=== PATIENT | male | born 1940 | race Caucasian/White ===

== ENCOUNTER 2024-12-24 09:35 | Observation (INO) | payer MEDICARE, BC ==
[2024-12-24] VITALS (8 sets, daily range): BP systolic 128–159; BP diastolic 81–97
[~2024-12-24] VITALS: Ht 170.2 cm; Wt 78.6 kg
[2024-12-24] MEDS ORDERED: ELIQUIS5 MG PO (09:51)
[2024-12-24] MEDS ORDERED: LEVOTHYROXIN50 MCG PO (09:51)
[2024-12-24] MEDS ORDERED: ALFUZOSIN HCL E10 MG PO (09:51)
[2024-12-24 10:32] LABS: BASO% 0.2 % (0-3); HEMOGLOBIN 12.9 g/dl (14.0-18.0); LYMPH% 9.4 % (15-41); MEAN CELL VOLUME 97.5 fL CALC (80.0-100.0); MEAN CORPUSCULAR HGB 32.3 pG CALC (26.0-32.0); MEAN CORPUSCULAR HGB CONC 33.1 g/dL CAL (32.0-36.0); NEUT% 78.4 % (42-76); RED CELL DISTRI WIDTH 13.8 % (11.5-15.5)
[2024-12-24 10:45] LABS: ALBUMIN 3.3 g/dL (3.2-5.0); BILIRUBIN, TOTAL 1.3 mg/dL (0.2-1.3); CREATININE 0.7 mg/dL (0.7-1.3); POTASSIUM 4.2 mmol/l (3.5-5.1); TOTAL PROTEIN 5.7 g/dL (6.3-8.2)
[2024-12-24] MEDS ORDERED: IPRATROPIUM-Albuterol 0.5MG-2.5MG/3 ML NEB ONE ×2 (10:50)
[2024-12-24] MEDS ORDERED: methylPREDNISolone SODIUM SUCC 125 MG/2 ML SDV IV ONE (10:50)
[2024-12-24] MEDS ORDERED: DOXYCYCLINE HYCLATE 100 MG in SODIUM CHLORIDE 0.9% 100 ML IV ONE (12:05)
[2024-12-24] MEDS ORDERED: cefTRIAXone SODIUM 2 GM in SODIUM CHLORIDE 0.9% 100 ML IV ONE (12:05)
[2024-12-24] MEDS ORDERED: OSELTAMIVIR PHOSPHATE 75 MG/TAB CAP PO ONE (12:05)
[2024-12-24] MEDS ORDERED: FUROSEMIDE 40 MG/4 ML SDV IV ONE (12:10)
[2024-12-24] MEDS ORDERED: OSELTAMIVIR PHOSPHATE 75 MG/TAB CAP PO SCH (14:47)
[2024-12-24] MEDS ORDERED: IPRATROPIUM-Albuterol 0.5MG-2.5MG/3 ML NEB PRN (14:50)
[2024-12-24] MEDS ORDERED: Polyethylene Glycol 3350 17 GM/PKT PO PRN (14:50)
[2024-12-24] MEDS ORDERED: DOXYCYCLINE HYCLATE 100 MG in SODIUM CHLORIDE 0.9% 100 ML IV SCH (14:50)
[2024-12-24] MEDS ORDERED: ONDANSETRON 4 MG/TAB ODT SL PRN (14:50)
[2024-12-24] MEDS ORDERED: ACETAMINOPHEN 325 MG/TAB PO PRN (14:50)
[2024-12-24] MEDS ORDERED: CEFEPIME HYDROCHLORIDE 2 GM in SODIUM CHLORIDE 0.9% 100 ML IV SCH (16:00)
[2024-12-24] MEDS ORDERED: APIXABAN BASE 5 MG TAB PO SCH (21:00)
[2024-12-24] MEDS ORDERED: ENOXAPARIN SODIUM 40 MG/0.4 ML SYR SC SCH (21:00)
[2024-12-24] MEDS ORDERED: methylPREDNISolone Sod Succ 40 MG/ML SDV IV SCH (22:00)
[2024-12-25] VITALS (8 sets, daily range): BP systolic 125–157; BP diastolic 73–95
[2024-12-25 05:44] LABS: BASO% 0.5 % (0-3); HEMATOCRIT 41.8 % (39.0-50.0); HEMOGLOBIN 13.9 g/dl (14.0-18.0); IMMATURE GRANULOCYTES 0.5 % (0.0-5.0); LYMPH% 12.1 % (15-41); MEAN CELL VOLUME 97.2 fL CALC (80.0-100.0); MEAN CORPUSCULAR HGB 32.3 pG CALC (26.0-32.0); MEAN CORPUSCULAR HGB CONC 33.3 g/dL CAL (32.0-36.0); MONO% 7.4 % (2-13); NEUT# 1.71 thou/uL (1.82-7.42); NEUT% 79.5 % (42-76); RED BLOOD COUNT 4.3 mill/uL (4.70-6.10); RED CELL DISTRI WIDTH 13.3 % (11.5-15.5)
[2024-12-25 05:49] LABS: ALBUMIN 3.3 g/dL (3.2-5.0); CREATININE 0.7 mg/dL (0.7-1.3); TOTAL PROTEIN 5.7 g/dL (6.3-8.2)
[2024-12-25 05:51] LABS: BILIRUBIN, TOTAL 0.6 mg/dL (0.2-1.3)
[2024-12-25] MEDS ORDERED: LEVOTHYROXINE SODIUM 50 MCG/TAB PO SCH (09:00)
[2024-12-26] VITALS (8 sets, daily range): BP systolic 132–154; BP diastolic 76–94
[2024-12-26 05:34] LABS: ALBUMIN 3.1 g/dL (3.2-5.0); BILIRUBIN, TOTAL 0.6 mg/dL (0.2-1.3); CREATININE 0.8 mg/dL (0.7-1.3); MAGNESIUM 2.1 mg/dL (1.6-2.3); POTASSIUM 4.4 mmol/l (3.5-5.1); TOTAL PROTEIN 5.6 g/dL (6.3-8.2)
[2024-12-26 05:35] LABS: BASO% 0.1 % (0-3); HEMATOCRIT 41.8 % (39.0-50.0); IMMATURE GRANULOCYTES 0.3 % (0.0-5.0); LYMPH% 6.4 % (15-41); MEAN CELL VOLUME 96.1 fL CALC (80.0-100.0); MEAN CORPUSCULAR HGB 32.2 pG CALC (26.0-32.0); MEAN CORPUSCULAR HGB CONC 33.5 g/dL CAL (32.0-36.0); MONO% 4.7 % (2-13); NEUT# 6.33 thou/uL (1.82-7.42); NEUT% 88.5 % (42-76); RED BLOOD COUNT 4.35 mill/uL (4.70-6.10); RED CELL DISTRI WIDTH 13.3 % (11.5-15.5)
[2024-12-27 00:01] VITALS: BP 135/92
[2024-12-27 03:55] VITALS: BP 133/95
[2024-12-27 04:31] VITALS: BP 133/95
[2024-12-27 05:20] LABS: BASO% 0.1 % (0-3); HEMATOCRIT 40.8 % (39.0-50.0); HEMOGLOBIN 13.8 g/dl (14.0-18.0); IMMATURE GRANULOCYTES 0.4 % (0.0-5.0); LYMPH% 5.1 % (15-41); MEAN CELL VOLUME 95.1 fL CALC (80.0-100.0); MEAN CORPUSCULAR HGB 32.2 pG CALC (26.0-32.0); MEAN CORPUSCULAR HGB CONC 33.8 g/dL CAL (32.0-36.0); MONO% 4.1 % (2-13); NEUT# 7.02 thou/uL (1.82-7.42); NEUT% 90.3 % (42-76); RED BLOOD COUNT 4.29 mill/uL (4.70-6.10); RED CELL DISTRI WIDTH 13.5 % (11.5-15.5)
[2024-12-27 05:42] LABS: BILIRUBIN, TOTAL 0.6 mg/dL (0.2-1.3); CREATININE 0.9 mg/dL (0.7-1.3); MAGNESIUM 2.1 mg/dL (1.6-2.3); POTASSIUM 4.5 mmol/l (3.5-5.1); TOTAL PROTEIN 5.3 g/dL (6.3-8.2)
[2024-12-27 06:28] VITALS: BP 148/90
[2024-12-27] MEDS ORDERED: LEVOTHYROXINE SODIUM 50 MCG/TAB PO SCH (08:06)
[2024-12-27] MEDS ORDERED: METOPROLOL SUCCINATE 50 MG/TAB PO SCH (09:30)
[2024-12-27 10:21] VITALS: BP 133/80
[2024-12-27] MEDS ORDERED: TAM75CAP PO (10:31)
[2024-12-27] MEDS ORDERED: TOPROL XL50 MG PO (10:31)
[2024-12-27] MEDS ORDERED: PREDNISONE10 MG PO (10:32)
[2024-12-27] MEDS ORDERED: DOXYCYCLINE100 MG PO (10:33)
== END 2024-12-27 14:06 | disposition home or self-care (01) ==
LOC: ED 09:35 → ED-I 11:06 → ED 14:41 → MS2 14:42
PROVIDERS: Family Medicine; Nurse Practitioner Family; ADMIT Internal Medicine; ATTEND Internal Medicine
DX: J10.00 Influenza due to other identified influenza virus with unspecified type of pneumonia (principal); I10 Essential (primary) hypertension; I48.0 Paroxysmal atrial fibrillation; E03.9 Hypothyroidism, unspecified; Z79.01 Long term (current) use of anticoagulants; Z20.822 Contact with and (suspected) exposure to COVID-19
CPT/HCPCS: G0378; J0692; J0696; J1940; Q9967